=== PATIENT | male | born 1945 | race African-American/Black ===

== ENCOUNTER 2020-12-27 00:39 | Emergency (ER) | payer MEDICARE, OTHER ==
[~2020-12-27] VITALS: Ht 188 cm; Wt 98.9 kg
[~2020-12-27 00:39] MED LIST: ALLOPURINOL100 MG PO; ATENOLOL100 MG PO; BACLOFEN20 MG PO; CARDURA8 MG PO; DOXYCYCLINE HY100 MG PO; HYDROCHLOROTHIA50 MG PO; LIPITOR10 MG PO; METHYLPREDNISOLO4 M1 PO; NAPROXEN500 MG PO; NEURONTIN300 MG PO; NORCO 5-325 TA1 EACH PO; OXYCODONE HCL5 MG PO; POTASSIUM CHLO20 ME1 PO; SENNA LAX8.6 MG PO
--- NOTE | 2020-12-27 20:59 | EKG ---
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
== END 2020-12-27 03:00 | disposition home or self-care (01) ==
LOC: ED 00:39
DX: U07.1 COVID-19 (principal); I10 Essential (primary) hypertension; M10.9 Gout, unspecified; E78.00 Pure hypercholesterolemia, unspecified; Z88.8 Allergy status to other drugs, medicaments and biological substances; Z79.899 Other long term (current) drug therapy
CPT/HCPCS: 71045; 80053; 81001; 83605; 84484; 85025; 87040; 93005; 93010; 99285-25; C9803; U0003

== ENCOUNTER 2023-12-23 20:00 | Emergency (ER) | payer MEDICARE, OTHER ==
[~2023-12-23] VITALS: Ht 188 cm; Wt 97.2 kg
[2023-12-23] MEDS ORDERED: AMLODIPINE BES2.5 MG PO (20:16)
[2023-12-23 21:02] LABS: BASOPHILS 0.8 % (0-2); EOSINOPHILS 2.4 % (0-6); HEMATOCRIT 49.5 % (35.0-50.0); HEMOGLOBIN 16.3 g/dL (12.0-18.0); LYMPHOCYTES 31.7 % (24-44); MCH 30.3 (27-36); MCV 91.7 fl (81-99); MONOCYTES 6.2 % (0-12); NEUTROPHILS 58.9 % (39-80); PLATELET COUNT 142 K/uL (140-440); RBC 5.39 M/ul (4.3-5.7); RDW 15.3 (10.5-15.0)
[2023-12-23 21:04] LABS: BILIRUBIN, URINE NEGATIVE (negative); BLOOD/HGB, URINE NEGATIVE (Negative); KETONE, URINE TRACE (Negative); LEUK ESTERASE, URINE NEGATIVE (negative); NITRITE, URINE NEGATIVE (negative); PH, URINE 5.5 (5-7)
[2023-12-23 21:25] LABS: ALBUMIN 3.8 g/dL (3.4-5.0); ALBUMIN/GLOBULIN RATIO 1.36 (1.1-2.4); ANION GAP 11.9 (7-21); BILIRUBIN, TOTAL 1.1 ng/dL (0.2-1.0); BUN/CREATININE RATIO 11.84 (6.0-28.6); CREATININE, SERUM 1.52 mg/dL (0.70-1.30); MAGNESIUM 1.5 mg/dL (1.8-2.4); POTASSIUM 2.9 mmol/L (3.5-5.1); PROTEIN, TOTAL 6.6 g/dL (6.4-8.2); TSH, 3RD GENERATION 1.274 uIU/mL (0.358-3.740)
[2023-12-23 21:28] LABS: AMPHETAMINES, URINE NEGATIVE (NEGATIVE); BARBITURATES, URINE NEGATIVE (NEGATIVE); BENZODIAZEPINE, URINE NEGATIVE (NEGATIVE); BUPRENORPHINE, URINE NEGATIVE (NEGATIVE); CANNABINOID, URINE NEGATIVE (NEGATIVE); COCAINE, URINE NEGATIVE (NEGATIVE); ECSTASY, URINE NEGATIVE (NEGATIVE); FENTANYL, URINE NEGATIVE (NEGATIVE); METHADONE, URINE NEGATIVE (NEGATIVE); OPIATES, URINE NEGATIVE (NEGATIVE); OXYCODONE, URINE NEGATIVE (NEGATIVE); PHENCYCLIDINE, URINE NEGATIVE (NEGATIVE)
[2023-12-23] MEDS ORDERED: MULTIVITAMINS 10 ML,FOLIC ACID 1 MG,THIAMINE HCL 100 MG in SODIUM CHLORIDE 0.9% 1,000 ML IV ONE (22:15)
[2023-12-23] MEDS ORDERED: POTASSIUM CHLORIDE 10 MEQ TABCR PO ONE ×2 (22:15→23:30)
[2023-12-23] MEDS ORDERED: MAGNESIUM OXIDE 400 MG TABLET PO ONE (22:15)
[2023-12-23] MEDS ORDERED: FOLIC ACID 1 MG/0.2 ML ML ONE (22:19)
[2023-12-24] MEDS ORDERED: MAGNESIUM OXID400 M1 PO (00:07)
[2023-12-24 00:18] VITALS: BP 117/78
--- NOTE | 2023-12-24 21:03 | EKG ---
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 block Right bundle branch block Left anterior fascicular block Bifascicular block Left ventricular hypertrophy with repolarization abnormality ( R in aVL , Romhilt-Viera ) Cannot rule out Septal infarct , age undetermined Abnormal ECG When compared with ECG of 27-DEC-2020 00:50, T wave inversion no longer evident in Inferior leads Confirmed by Savana Long MD () on 12/24/2023 9:03:13 PM Electronically Signed By: SAVANA LONG MD 12/24/232102 PATIENT NAME: SETH TAY Electrocardiogram DATE OF : 45 PHYSICIAN: SAVANA LONG MD REPORT #: [id number] REPORT IS CONFIDENTIAL AND NOT TO BE RELEASED WITHOUT AUTHORIZATION
== END 2023-12-24 00:20 | disposition home or self-care (01) ==
LOC: ED 20:00
PROVIDERS: Internal Medicine
DX: M48.061 Spinal stenosis, lumbar region without neurogenic claudication (principal); F10.129 Alcohol abuse with intoxication, unspecified; E87.6 Hypokalemia; E83.42 Hypomagnesemia; I10 Essential (primary) hypertension; Z88.8 Allergy status to other drugs, medicaments and biological substances; Z79.899 Other long term (current) drug therapy; Z96.652 Presence of left artificial knee joint
CPT/HCPCS: 36415; 80053; 80307; 81003; 82553; 83735; 83880; 84443; 84484; 85025; 87088; 93005; 93010; 96374; 99284-25; A9270; G0480; J3411; J7030

== ENCOUNTER 2024-09-11 09:47 | Emergency (ER) | payer OTHER, MEDICARE ==
[~2024-09-11] VITALS: Ht 188 cm; Wt 92.8 kg
[~2024-09-11 09:47] MED LIST changes: +AMLODIPINE BES2.5 MG PO; +MAGNESIUM OXID400 M1 PO
[2024-09-11] MEDS ORDERED: CYCLOBENZAPRINE HCL 10 MG TAB PO ONE (10:15)
[2024-09-11] MEDS ORDERED: IBUPROFEN 600 MG TAB PO ONE (10:15)
[2024-09-11] MEDS ORDERED: CYCLOBENZAPRINE10 MG PO (12:00)
[2024-09-11] MEDS ORDERED: PERCOCET 5-3251 EACH PO (12:09)
[2024-09-11 12:26] VITALS: BP 118/96
== END 2024-09-11 12:27 | disposition home or self-care (01) ==
LOC: ED 09:47
DX: M54.2 Cervicalgia (principal); M43.22 Fusion of spine, cervical region; I10 Essential (primary) hypertension; Z88.8 Allergy status to other drugs, medicaments and biological substances
CPT/HCPCS: 72125; 72128; 99283-25; A9270

== ENCOUNTER 2025-04-09 10:45 | Emergency (ER) | payer OTHER, MEDICARE ==
[~2025-04-09] VITALS: Ht 188 cm; Wt 93.5 kg
--- OUTSIDE RECORDS SUMMARY | ~2025-04-09 | XMS | Continuity of Care Document ---
Demographics + + + | Address | [address] | | | [place] [address] | + + + | Preferred Language | Unknown | + + + | Marital Status | | + + + | Baptism Affiliation | Unknown | + + + | Race | Unknown | + + + | Ethnic Group | Not or | + + + Author + + + | Author | [facility] | + + + | Organization | [facility] | + + + | Address | [address] | | | [place] [address] | + + + | Phone | | + + + Care Team Providers + + + + | Care [place]er Name | Role | Phone | + + + + Unavailable | Unavailable | + + + + Allergies No information. Encounters No information. Functional Status No information. Immunizations No information. Medications + + + + | date | description | facility | + + + + | (no date) | ALLOPURINOL | [facility] | | | | [facility] | + + + + | (no date) | BACLOFEN | [facility] | | | | [facility] | + + + + | (no date) | HYDROCHLOROTHIAZIDE | [facility] | | | | [facility] | + + + + | (no date) | POTASSIUM CHLORIDE | [facility] | | | | [facility] | + + + + | (no date) | DOXAZOSIN MESYLATE | [facility] | | | | [facility] | + + + + | (no date) | AMLODIPINE BESYLATE | [facility] | | | | [facility] | + + + + | (no date) | ATORVASTATIN | [facility] | | | | [facility] | + + + + Problems No information. Procedures No information. Results/Labs No information. Social History +--------+ + + | date | description | facility | +--------+ + + Vital Signs No information."
[~2025-04-09 10:45] MED LIST changes: +CYCLOBENZAPRINE10 MG PO; +PERCOCET 5-3251 EACH PO
[2025-04-09] MEDS ORDERED: TETRACAINE HCL 0.5% 4 ML BTL OU PRN (11:15)
[2025-04-09] MEDS ORDERED: FLUORESCEIN SOD 1 EA STRP OU ONE (11:15)
[2025-04-09] MEDS ORDERED: ERYTHROMYCIN 3.5 GM HOME.PACK OP ONE (13:45)
[2025-04-09 13:55] VITALS: BP 125/81
== END 2025-04-09 13:56 | disposition home or self-care (01) ==
LOC: ED 10:45
DX: H10.9 Unspecified conjunctivitis (principal); I10 Essential (primary) hypertension; Z88.8 Allergy status to other drugs, medicaments and biological substances; Z79.899 Other long term (current) drug therapy
CPT/HCPCS: 99283